=== PATIENT | male | born 1955 | race Hispanic/Latino ===

== ENCOUNTER → 2023-07-26 | Outpatient (CLI) | payer OTHER | END | disposition home or self-care (01) | LOC: SHCH 07:34 | PROVIDERS: ATTEND Internal Medicine Cardiovascular Disease | DX: R94.31 Abnormal electrocardiogram [ECG] [EKG] (principal); J44.9 Chronic obstructive pulmonary disease, unspecified | CPT/HCPCS: 93306 ==

== ENCOUNTER → 2023-08-01 | Outpatient (CLI) | payer OTHER | END | disposition home or self-care (01) | LOC: RAH 12:47 | PROVIDERS: ATTEND Internal Medicine Cardiovascular Disease | DX: Z13.6 Encounter for screening for cardiovascular disorders (principal) | CPT/HCPCS: 75571 ==

== ENCOUNTER 2025-03-13 06:29 | Inpatient (IN) | payer OTHER, MEDICARE ==
[~2025-03-13] VITALS: Ht 175.3 cm; Wt 72.2 kg
[2025-03-13 06:54] LABS: IMMATURE GRANULOCYTE ABSOLUTE 0.08 K/uL (0-1); NUCLEATED RED BLOOD CELLS 0.0 % (0.0-0.19); PLATELET COUNT (AUTO) 191 K/uL (130-400); RED BLOOD CELL COUNT(AUTO) 3.38 MIL/uL (4.50-6.20); RED CELL DISTRIBUTION WIDTH 15.7 % (11.0-15.5); WHITE BLOOD COUNT (AUTO) 6.5 K/uL (4.8-10.8)
[2025-03-13 06:59] LABS: CREATININE 0.9 mg/dL (0.5-1.3); GLOMERULAR FILTR. RATE CALC 91.0 mL/min (>90); GLUCOSE,RANDOM 133.0 mg/dL (70-105); SODIUM SERUM 142.0 mmol/L (136-145); UREA NITROGEN, BLOOD 12.0 mg/dL (7-18)
--- NOTE | 2025-03-13 07:01 | ERN ---
ED Note History of Present Illness Stated Complaint: BILATERAL FLANK PAIN Chief Complaint: Flank Pain Time Seen by MD: 06:54 Dictation: This is a 70-year-old male who presented to the emergency room with complaints of bilateral flank pain going on for 2-3 days. Apparently he has taken ibuprofen without much relief and hence he came in today he also gave a history of feeling cold with chills but no documented fever. He denied any hematuria pyuria. No history of any dysuria. No bladder or bowel incontinence. No lower extremity weakness ataxia or falls. Temperature 98.4 pulse 82 respirations 20 blood pressure 131/59 with a pulse oximetry of 99% on room air Problems include prostate cancer, asthma, COPD, hypothyroidism and has a right Port-A-Cath placement Patient is under the care of oncologist Allergies: Coded Allergies: No Known Drug Allergies (Unverified Allergy, Unknown, 05/21/18) Past Medical History Past Medical History: Asthma, COPD, Hypothyroid, Other Additional Past Medical Hx: PROSTATE CA Surgical History: Other Surgical History Other: KNEE REPLACEMENT Family History: Negative Social History: Negative RN Note Reviewed/Agreed w/PFSH: Yes Review of System Dictation Constitutional: Negative for fever,chills, and weight loss Eyes: Negative for injury, pain,redness, and discharge ENT: Negative for injury,pain or swelling Cardiovascular: Negative for chest pain, palpitations, and edema Respiratory: Negative for shortness of breath, cough, and wheezing, Abdomen/GI: Negative for abdominal pain, nausea, vomiting, diarrhea, and constipation Back: Positive for bilateral flank pain : Negative for injury, bleeding and discharge MS/Extremity: Negative for injury and deformity Skin: Negative for rash, and discoloration Neuro: Negative for headache, weakness, numbness, tingling, and seizure Psych: Negative for suicide ideation, homicidal ideation, and hallucinations Initial Vital Sign VS Vital Signs Date Time Temp Pulse Resp B/P (MAP) Pulse Ox O2 Delivery O2 Flow Rate FiO2 03/13/25 06:31 98.4 82 20 131/59 99 Room Air 0 03/13/25 06:38 21 Physical Exam Dictation General: awake, alert, NAD Head/Face: Normocephalic, atraumatic Eyes: PERRL, EOMI, vision at baseline ENT: oral cavity clear, TMs clear, no signs of infection Neck: Trachea midline, supple, no nuchal rigidity Cardiovascular: RRR, normal S1/S2, No MRGs, no JVD Respiratory: CTAB, no respiratory distress, No rales or wheezes Abdomen: Soft, non-tender, non-distended, normal bowel sounds, no guarding or rebound. Skin: Warm, dry, normal turgor, no rash MS/Extremity: Pulses equal, no cyanosis, neurovascular intact, FROM Neuro: COAx4, GCS 15, strength 5/5, CN 2-12 intact, normal cerebellar exam, normal gait, Psych: Normal behavior, mood, and affect normal Extremities-trace edema without any palpable cords, Homans sign is negative Results (Laboratory/Radiology) Laboratory/Radiology Laboratory Tests Test 03/13/25 06:34 03/13/25 07:32 03/13/25 14:18 White Blood Count 6.5 K/uL (4.8-10.8) Red Blood Count 3.38 MIL/uL (4.50-6.20) L Hemoglobin 10.3 g/dL (14.0-18.0) L Hematocrit 30.6 % (42-54) L Mean Corpuscular Volume 90.5 fL (79-99) Mean Corpuscular Hemoglobin 30.5 pg (27.0-33.0) Mean Corpuscular Hemoglobin Concent 33.7 g/dL (32.0-36.0) Red Cell Distribution Width 15.7 % (11.0-15.5) H Platelet Count 191 K/uL (130-400) Mean Platelet Volume 9.5 fL (7.5-10.5) Immature Granulocyte % (Auto) 1.2 % (0-1) H Neutrophils (%) (Auto) 73.5 % (40.0-77.0) Lymphocytes (%) (Auto) 15.3 % (21.0-51.0) L Monocytes (%) (Auto) 6.0 % (3.0-13.0) Eosinophils (%) (Auto) 3.7 % (0.0-8.0) Basophils (%) (Auto) 0.3 % (0.0-5.0) Neutrophils # (Auto) 4.8 K/uL (1.8-7.7) Lymphocytes # (Auto) 1.0 K/uL (1.0-4.8) Monocytes # (Auto) 0.4 K/uL (0.1-1.0) Eosinophils # (Auto) 0.24 K/uL (0.00-0.70) Basophils # (Auto) 0.02 K/uL (0.00-0.20) Absolute Immature Granulocyte (auto 0.08 K/uL (0-1) Nucleated Red Blood Cells 0.0 % (0.0-0.19) Urine Color YELLOW (YELLOW) Urine Appearance CLEAR (CLEAR) Urine pH 5.5 (5.0-8.0) Urine Specific [place] 1.026 (1.001-1.031) Urine Protein 10 mg/dL (NEGATIVE) H Urine Glucose (UA) NEGATIVE mg/dL (NEGATIVE) Urine Ketones NEGATIVE mg/dL (NEGATIVE) Urine Occult Blood NEGATIVE (NEGATIVE) Urine Nitrate NEGATIVE (NEGATIVE) Urine Bilirubin NEGATIVE mg/dL (NEGATIVE) Urine Urobilinogen 0.2 mg/dL (0.2-1.0) Urine Leukocyte Esterase NEGATIVE [place]/uL Urine RBC 0-1 /HPF (0-1) Urine WBC 2-5 /HPF (0-1) H Urine Amorphous Crystals (Auto) RARE /LPF (None Seen) Urine Bacteria None /HPF (None Seen) Sodium Level 142 mmol/L (136-145) Potassium Level 3.4 mmol/L (3.5-5.1) L Chloride Level 105 mmol/L (101-111) Carbon Dioxide Level 27 mmol/L (21-32) Blood Urea Nitrogen 12 mg/dL (7-18) Creatinine 0.9 mg/dL (0.5-1.3) Glomerular Filtration Rate Calc 91 mL/min (>90) Random Glucose 133 mg/dL (70-105) H Total Calcium 10.1 mg/dL (8.5-10.1) Magnesium Level 1.80 mg/dL (1.80-2.40) Total Bilirubin 0.6 mg/dL (0.2-1.0) Direct Bilirubin 0.2 mg/dL (0.0-0.3) Aspartate Amino Transf (AST/SGOT) 83 U/L (10-37) H Alanine Aminotransferase (ALT/SGPT) 14 U/L (12-78) Alkaline Phosphatase 323 U/L (50-136) H Total Protein 6.3 g/dL (6.0-8.3) Albumin 3.3 g/dL (3.5-5.0) L Troponin I High Sensitivity 5 ng/L (4-75) Prothrombin Time 13.2 SEC (9.6-11.6) H Prothromb Time International Ratio 1.28 (0.85-1.15) H Activated Partial Thromboplast Time 30.9 SEC (26.3-35.5) Labs Reviewed?: Yes ED Course ED Course Orders Procedure Category Date Status Time Cbc With Differential LAB 03/13/25 Complete 06:42 Basic Metabolic Panel LAB 03/13/25 Complete 06:42 Urinalysis Profile LAB 03/13/25 Complete 06:42 Ct Abd/Pel Wo Con CT 03/13/25 Resulted Renal/Appy 07:00 12 Lead Ekg Tracing- EKG 03/13/25 Resulted Technical 07:26 Troponin I High LAB 03/13/25 Complete Sensitivity 07:26 Morphine 4mg Syg PHA 03/13/25 Complete (Morphine 4mg Syg) 08:30 Ketorolac PHA 03/13/25 Complete Tromethamine 15mg/Ml 08:30 Ondansetron 4mg Inj PHA 03/13/25 Complete (Zofran 4mg Inj) 08:30 Hydromorphone 1 Mg PHA 03/13/25 Complete Inj (Dilaudid 1mg Inj 10:30 Admit Orders ADM 03/13/25 Transmitted 13:36 Telemetry Monitoring CPOE 03/13/25 Transmitted 13:36 Fall Precautions CPOE 03/13/25 Transmitted 13:36 Aspiration Precautions CPOE 03/13/25 Transmitted 13:36 Elevate Hob At 30 CPOE 03/13/25 Transmitted Degrees 13:36 Acetaminophen 325 Tab PHA 03/13/25 In Process (Tylenol 325mg Tab 14:00 Ondansetron 4mg Inj PHA 03/13/25 In Process (Zofran 4mg Inj) 14:00 *Nursing CPOE 03/13/25 Transmitted Communication: 13:36 Oncology Consult CONPHYSVC 03/13/25 Transmitted 13:36 Gi Soft/[place] Diet DIET 03/13/25 Transmitted Lunch Pantoprazole 40mg Inj PHA 03/13/25 Complete (Protonix 40mg Inj 14:00 Potassium Chloride PHA 03/13/25 Complete 20meq Er (K-Dur/Klor- 14:00 0.9%Nacl 1000ml (Ns PHA 03/13/25 In Process 1000ml) 14:00 Hydromorphone 0.5mg PHA 03/13/25 In Process Syg (Dilaudid 0.5mg 14:00 Hepatic Function Panel LAB 03/13/25 Complete 13:55 Thiamine Hcl (Vitamin PHA 03/13/25 In Process B-1) 14:00 Vital Signs(Adult CPOE 03/13/25 Transmitted Hospitalist) 13:55 Daily Weights CPOE 03/13/25 Transmitted 13:55 Pulse Ox(Continuous) RT 03/13/25 Transmitted 13:55 Condition: CPOE 03/13/25 Transmitted 13:55 Activity: Br W/Brp CPOE 03/13/25 Transmitted With Assist 13:55 Apply Scds CPOE 03/13/25 Transmitted 13:55 Famotidine 20mg Tab PHA 03/13/25 In Process (Pepcid 20mg Tab) 21:00 Enoxaparin Sodium 30 PHA 03/14/25 In Process Mg/0.3 Ml (Lovenox) 09:00 Pt And Ptt LAB 03/13/25 Complete 14:00 Multivitamin Tablet PHA 03/14/25 In Process (Multivitamin Tablet 09:00 Magnesium LAB 03/13/25 Complete 13:55 *Nursing CPOE 03/13/25 Transmitted Communication: 14:24 Sennosides (Senna) PHA 03/14/25 In Process 09:00 Docusate Sodium 100 PHA 03/13/25 In Process Mg Cap (Colace 100mg 21:00 Fluconazole 100 Mg PHA 03/14/25 In Process Tab (Diflucan 100 Mg 09:00 Current Medications Medications (Trade) Dose Ordered Sig/Denzel Route PRN Reason Start Time Stop Time Status Last Admin Dose Admin Hydromorphone HCl (DiLAUDid 1MG INJ) 1 mg ONCE ONCE IVP 03/13/25 10:30 03/13/25 10:31 DC 03/13/25 10:39 Ketorolac Tromethamine (toRADol) 15 mg ONCE ONCE IV 03/13/25 08:30 03/13/25 08:31 DC 03/13/25 08:30 Morphine Sulfate (morPHINE 4MG SYG) 4 mg ONCE ONCE IVP 03/13/25 08:30 03/13/25 08:31 DC 03/13/25 08:32 Ondansetron HCl (zoFRAN 4MG INJ) 4 mg ONCE ONCE IVP 03/13/25 08:30 03/13/25 08:31 DC 03/13/25 08:30 Vital Signs Date Time Temp Pulse Resp B/P (MAP) Pulse Ox O2 Delivery O2 Flow Rate FiO2 03/13/25 12:28 98.1 72 19 131/67 99 Room Air* 0 21 03/13/25 07:39 97.9 68 19 126/67 100 Room Air* 0 21 03/13/25 06:38 98.4 85 18 135/62 99 Room Air* 0 21 03/13/25 06:31 98.4 82 20 131/59 99 Room Air 0 We will perform diagnostic labs, imaging and administer medications according to the patient's complaint. Once the results are available, will review and personally interpreted the labs to rule out any acute life-threatening emergency the trach require immediate intervention and treatment. I will then re-evaluate the patient after treatment and diagnostic exams have return to determine whether the patient requires any further testing, can safely be discharged home or need further admission to hospital for additional treatment and evaluation. Medical Decision Making MDM MDM differential-paraspinal muscle spasm, lumbago, pyelonephritis, renal colic, diverticulitis, metastatic lesions of the spine This is a 70-year-old male who presented to the emergency room with complaints of bilateral flank pain going on for 2-3 days. Apparently he has taken ibuprofen without much relief and hence he came in today he also gave a history of feeling cold with chills but no documented fever. He denied any hematuria pyuria. No history of any dysuria. No bladder or bowel incontinence. No lower extremity weakness ataxia or falls. Temperature 98.4 pulse 82 respirations 20 blood pressure 131/59 with a pulse oximetry of 99% on room air Problems include prostate cancer, asthma, COPD, hypothyroidism and has a right Port-A-Cath placement Patient is under the care of oncologist - Patient handed off at shift change with right due pain unable to ambulate admitting to Medicine for further care and evaluation DX & DISP Disposition: Inpatient Departure Impression: Primary Impression: Intractable back pain Condition: Stable Referrals: CHET CEBALLOS DO (PCP) RANDAL DALY MD Mar 13, 2025 07:01 EMERY ERAZO MD Mar 13, 2025 15:26
[2025-03-13 07:02] LABS: APPEARANCE,URINE CLEAR (CLEAR); GLUCOSE, URINE (UA) NEGATIVE (NEGATIVE); LEUKOCYTE ESTERASE ,URINE NEGATIVE Leu/uL (NEGATIVE); NITRATE,URINE NEGATIVE (NEGATIVE); OCCULT BLOOD,URINE NEGATIVE (NEGATIVE)
[2025-03-13 07:06] LABS: ADD UA MICROSCOPIC YES
--- NOTE | 2025-03-13 07:50 | HMCIMG ---
EXAM: CT Abdomen and Pelvis without V contrast CLINICAL HISTORY: Bilateral flank pain and prostate cancer. TECHNIQUE: Thin collimated axial CT images of the abdomen and pelvis were obtained, with sagittal and coronal reformatted images also submitted. A CT scan is done according to ALARA (As Low As Reasonably Achievable). CONTRAST: None COMPARISON: None. FINDINGS: Mild right posterior pleural thickening. Linear fibrotic band in the right middle lobe and lingula. No lung nodules. A 3.5 x 2.4 x 2.7 cm nodule in the right adrenal gland and an enlarged left adrenal gland measuring 3.9 x 3.7 x 4.2 cm No focal abnormality within the liver, gallbladder, pancreas, spleen, or kidneys. Scattered diverticulosis of the sigmoid colon without evidence of diverticulitis. There is no obvious bowel wall thickening. Bowel loops are normal in caliber without evidence of obstruction or ileus. The appendix is normal. Normal-sized prostate with median lobe hypertrophy. Partially distended urinary bladder with diffuse wall thickening, probable changes of cystitis or detrusor hyperplasia. Abdominal and pelvic vessels are patent. No lymphadenopathy. No free fluid. There is no acute osseous abnormality. Degenerative changes in the sacroiliac, superolateral joint, and multilevel severe degenerative facet arthropathy in the lumbar spine. Disc osteophyte complex bulges at L1-L2, L2-L3, and L3-L4 levels with severe facet arthropathy and moderate to severe narrowing of the neural foramina. Retrolisthesis of L1 over L2 and L2 over L3. Diffuse ill-defined sclerosis of the visualized thoracic and lumbar vertebrae, bilateral iliac bones, suspicious for metastasis. IMPRESSIONS: No acute intra-abdominal pathology. No abdominal fat stranding or collection. No evidence of ascites or free intraperitoneal air. Normal-sized prostate with median lobe hypertrophy. Diffuse wall thickening of the urinary bladder is probably a change of cystitis or detrusor hyperplasia. Scattered diverticulosis of the sigmoid colon without evidence of diverticulitis. Bilateral adrenal lesions as described, larger on the left side; the possibility of metastasis is not excluded. Diffuse ill-defined sclerosis of the thoracic and lumbar vertebrae and the pelvic bones is consistent with metastasis. Multilevel severe degenerative changes in the lumbar spine as described above. Minimal retrolisthesis of L1 over L2. /[place]
--- NOTE | 2025-03-13 08:18 | EKG ---
[facility] Test Date: 2025-03-13 Test Time: 07:44:07 Pat Name: MICHAEL CASE Department: ED Room: Gender: M Service Order Expediter: [id number] : [id number] Requested By: EMERY ERAZO Order Number: [id number] Reading MD: Ruby Epstein Measurements Intervals [place] Rate: 74 P: 56 [place]: 200 QRS: -35 QRSD: 92 T: 44 QT: 391 QTc: 434 Interpretive Statements Sinus rhythm Left axis deviation Nonspecific T abnormalities, anterior leads No previous ECG available for comparison Electronically Signed On 03-13-2025 13:13:27 CDT by Ruby Epstein Please click the below link to view image of tracing.
[2025-03-13 14:16] LABS: ASPARTATE AMINOTRANSFERASE 83.0 U/L (10-37); TOTAL PROTEIN, SERUM 6.3 g/dL (6.0-8.3)
[2025-03-13 14:42] LABS: INR 1.28 (0.85-1.15)
--- NOTE | 2025-03-13 14:44 | HP ---
[facility] HISTORY AND PHYSICAL Date of Service: Mar 13, 2025 Time of Service: 14:37 HISTORY OF PRESENT ILLNESS: Date of service: 03/13/2025, patient was seen in ER room 19 This is a 70-year-old male with underlying history of COPD, BPH, history of metastatic prostate cancer who presented to the ER for further evaluation of intractable pain involving the lower back, flank and hip area. Patient states that pain has been ongoing for the past 1-2 weeks and has progressively worsened over the last several days. Patient is followed by Dr. Santacruz outpatient for management of metastatic prostate cancer. He has a right Port-A-Cath as well. He is currently being arranged for evaluation with MD Galindo in [place]. He has been having nonresolving pain and is currently taking oxycodone every 4 hours as needed for pain control. Oxycodone is moderately relieving the pain but he continues to have persistent pain. Denies any nausea or vomiting. Denies any constipation. Denies any shortness of breath or chest pain otherwise. He has lost about 7-8 lb over the last several weeks. Oral intake remains poor. Patient denies any syncopal episodes. Denies any weakness to the lower extremity or fall. On presentation to the hospital, patient was noted to be afebrile with T-max of 98.1 F, blood pressure of 131/59. Labs on presentation showed WBC count of 6500, hemoglobin 10.3, platelet count of [id number]. BMP remarkable for sodium of 142, potassium of 3.4, chloride of 105, BUN of 12, creatinine of 0.9, AST of 83, ALT of 14, alkaline phosphatase of 323. Patient underwent further evaluation with CT abdomen pelvis without contrast which showed findings of bilateral adrenal lesions, diffuse ill-defined sclerosis of the thoracic and lumbar vertebrae and pelvic bones consistent with metastasis. Patient has been observed in the ER for about 6 hours and has needed pain control with IV morphine and IV hydromorphone and continues to have significant pain. Patient will be admitted for pain control secondary to cancer-related pain with known metastasis to bones. Consultation with primary Oncology will be requested. We will see how patient does in the next 24-48 hours, we will need to consider fentanyl patch on discharge. REVIEW OF SYSTEMS CONSTITUTIONAL: Denies fevers, chills, or night sweats. reports having poor oral intake due to pain NEUROLOGICAL: Denies headache, amaurosis fugax, motor weakness, sensory deficit, vertigo/spinning sensation, gait abnormalities, or tremors. ENT: No hearing loss, otalgia, otorrhea, rhinitis, rhinorrhea, hoarseness, or sore throat. CARDIOVASCULAR: Denies any exertional angina, dyspnea on exertion, orthopnea, paroxysmal nocturnal dyspnea, palpitations, life-threatening arrhythmias, claudication. PULMONARY: Denies any shortness of breath, cough, phlegm/sputum, hemoptysis, pleuritic chest pain. SLEEP: Denies morning headaches, daytime somnolence or napping. Denies difficulty falling asleep, staying asleep, waking from sleep. Denies knowledge of snoring. GASTROINTESTINAL: Denies any type of dysphagia to either liquids or solids. Denies nausea, vomiting, pyrosis, early satiety, abdominal pain, diarrhea, constipation, or changes in stool consistency or caliber. Denies coffee-ground emesis, hematemesis, hematochezia, or melanotic stools. GENITOURINARY: Denies frequency, urgency, nocturia, hematuria or incontinence (Storage/Irritative symptoms.) Low urinary stream, straining to void, urinary intermittency or hesitancy, splitting of the voiding stream, terminal dribbling. ENDOCRINOLOGIC: Denies polyuria, polydipsia, polyphagia or heat/cold intolerances. HEMATOLOGIC: Denies thrombophilia/previous clots, or coagulopathy/bleeding disorders. ONCOLOGIC: reports hx of metastatic prostate cancer, reports having pain in the lower back, flank and hips DERMATOLOGIC: Denies rashes or pruritus. PSYCHIATRIC: Denies any suicidal or homicidal ideation. Denies hallucinations. PAST MEDICAL HISTORY: Metastatic prostate cancer, COPD, hypothyroidism PAST SURGICAL HISTORY: Bilateral knee replacement, history of right Port-A-Cath placement PAST SOCIAL HISTORY: Denies active smoking or alcohol consumption, patient has a remote smoking history FAMILY HISTORY: Denies pertinent family history allergies: No known drug allergies Home medications: Patient will have family bring list of home medications, reports being on morphine ER 30 mg twice daily, oxycodone 10-325 mg q4h prn Coded Allergies: No Known Drug Allergies (Unverified Allergy, Unknown, 05/21/18) PHYSICAL EXAM GENERAL APPEARANCE: The patient is awake, alert, and oriented, in no acute cardiopulmonary distress. NEUROLOGICAL: Cranial nerves II-XII grossly intact. Motor is 5/5 in bilateral upper and lower extremities proximal to distal. No sensory deficits. HEENT: Face is symmetric. Pupils are equal and reactive. Extraocular movements are intact. NECK: Supple. No JVD. No thyromegaly. No submental, submandibular, pre- /postauricular, occipital or supraclavicular lymphadenopathy. CHEST: Normal chest expansion. No Telemetry. LUNGS: Absence of any rales, rhonchi or any wheezing. CARDIOVASCULAR: Regular. S1 and S2 normal. No appreciable rubs, murmurs or gallops. ABDOMEN: Soft, nontender, and nondistended. There is no rebound, voluntary guarding, or rigidity. : Deferred. No Gabriel. EXTREMITIES: Non-edematous and not cyanotic. No clubbing. Good capillary refill. SKIN: No skin breakdown. Vital Sign (Last 24 Hours) 03/13/25 12:28 Temp 98.1 Pulse 72 Resp 19 B/P (MAP) 131/67 Pulse Ox 99 O2 Delivery Room Air* O2 Flow Rate 0 FiO2 21 LABS: Laboratory: Test 03/13/25 07:32 03/13/25 06:34 Range/Units Troponin I High Sensitivity 5 4-75 ng/L White Blood Count 6.5 4.8-10.8 K/uL Red Blood Count 3.38 L 4.50-6.20 MIL/uL Hemoglobin 10.3 L 14.0-18.0 g/dL Hematocrit 30.6 L 42-54 % Mean Corpuscular Volume 90.5 79-99 fL Mean Corpuscular Hemoglobin 30.5 27.0-33.0 pg Mean Corpuscular Hemoglobin Concent 33.7 32.0-36.0 g/dL Red Cell Distribution Width 15.7 H 11.0-15.5 % Platelet Count 191 130-400 K/uL Mean Platelet Volume 9.5 7.5-10.5 fL Immature Granulocyte % (Auto) 1.2 H 0-1 % Neutrophils (%) (Auto) 73.5 40.0-77.0 % Lymphocytes (%) (Auto) 15.3 L 21.0-51.0 % Monocytes (%) (Auto) 6.0 3.0-13.0 % Eosinophils (%) (Auto) 3.7 0.0-8.0 % Basophils (%) (Auto) 0.3 0.0-5.0 % Neutrophils # (Auto) 4.8 1.8-7.7 K/uL Lymphocytes # (Auto) 1.0 1.0-4.8 K/uL Monocytes # (Auto) 0.4 0.1-1.0 K/uL Eosinophils # (Auto) 0.24 0.00-0.70 K/uL Basophils # (Auto) 0.02 0.00-0.20 K/uL Absolute Immature Granulocyte (auto 0.08 0-1 K/uL Nucleated Red Blood Cells 0.0 0.0-0.19 % Urine Color YELLOW YELLOW Urine Appearance CLEAR CLEAR Urine pH 5.5 5.0-8.0 Urine Specific Goode 1.026 1.001-1.031 Urine Protein 10 H NEGATIVE mg/dL Urine Glucose (UA) NEGATIVE NEGATIVE mg/dL Urine Ketones NEGATIVE NEGATIVE mg/dL Urine Occult Blood NEGATIVE NEGATIVE Urine Nitrate NEGATIVE NEGATIVE Urine Bilirubin NEGATIVE NEGATIVE mg/dL Urine Urobilinogen 0.2 0.2-1.0 mg/dL Urine Leukocyte Esterase NEGATIVE NEGATIVE Faiza/uL Urine RBC 0-1 0-1 /HPF Urine WBC 2-5 H 0-1 /HPF Urine Amorphous Crystals (Auto) RARE None Seen /LPF Urine Bacteria None None Seen /HPF Sodium Level 142 136-145 mmol/L Potassium Level 3.4 L 3.5-5.1 mmol/L Chloride Level 105 101-111 mmol/L Carbon Dioxide Level 27 21-32 mmol/L Blood Urea Nitrogen 12 7-18 mg/dL Creatinine 0.9 0.5-1.3 mg/dL Glomerular Filtration Rate Calc 91 >90 mL/min Random Glucose 133 H 70-105 mg/dL Total Calcium 10.1 8.5-10.1 mg/dL Magnesium Level 1.80 1.80-2.40 mg/dL Total Bilirubin 0.6 0.2-1.0 mg/dL Direct Bilirubin 0.2 0.0-0.3 mg/dL Aspartate Amino Transf (AST/SGOT) 83 H 10-37 U/L Alanine Aminotransferase (ALT/SGPT) 14 12-78 U/L Alkaline Phosphatase 323 H 50-136 U/L Total Protein 6.3 6.0-8.3 g/dL Albumin 3.3 L 3.5-5.0 g/dL Current Medications Medications (Trade) Dose Ordered Sig/Denzel Route PRN Reason Start Time Stop Time Status Last Admin Dose Admin Acetaminophen (TYLenol 325MG TAB) 650 mg Q6H PRN PO MILD PAIN (1-3) 03/13/25 14:00 04/12/25 13:59 Docusate Sodium (COLace 100MG CAP) 100 mg BID PO 03/13/25 21:00 04/12/25 20:59 Enoxaparin Sodium (Lovenox) 30 mg DAILY SQ 03/14/25 09:00 04/13/25 08:59 Famotidine (Pepcid 20mg Tab) 20 mg BID PO 03/13/25 21:00 04/12/25 20:59 Hydromorphone HCl (DiLAUDid 0.5MG INJ) 0.5 mg Q4H PRN IVP SEVERE PAIN (7-10) 03/13/25 14:00 03/18/25 13:59 Multivitamins Therapeutic (Multivitamin Tablet) 1 tab DAILY PO 03/14/25 09:00 04/13/25 08:59 Ondansetron HCl (zoFRAN 4MG INJ) 4 mg Q6H PRN IVP NAUSEA/VOMITING 03/13/25 14:00 04/12/25 13:59 Pantoprazole Sodium (PROTonix 40MG INJ) 40 mg Q24H IVP 03/13/25 14:00 03/13/25 14:09 DC Sennosides (Senna) 1 tab DAILY PO 03/14/25 09:00 04/13/25 08:59 Sodium Chloride 1,000 ml @ 50 mls/hr Q20H IV 03/13/25 14:00 04/12/25 13:59 Thiamine HCl (Vitamin B-1) 100 mg Q24H IVP 03/13/25 14:00 04/12/25 13:59 DIAGNOSTICS / RADIOLOGY: SERVICE 0700 REASON: bilateral flank pain, prostate cancer ORDERING PHYSICIAN: RANDAL DALY MD PROCEDURE: ABD PELVWO - CT ABD/PEL WO CON RENAL/APPY EXAM: CT Abdomen and Pelvis without V contrast CLINICAL HISTORY: Bilateral flank pain and prostate cancer. TECHNIQUE: Thin collimated axial CT images of the abdomen and pelvis were obtained, with sagittal and coronal reformatted images also submitted. A CT scan is done according to ALARA (As Low As Reasonably Achievable). CONTRAST: None COMPARISON: None. FINDINGS: Mild right posterior pleural thickening. Linear fibrotic band in the right middle lobe and lingula. No lung nodules. A 3.5 x 2.4 x 2.7 cm nodule in the right adrenal gland and an enlarged left adrenal gland measuring 3.9 x 3.7 x 4.2 cm No focal abnormality within the liver, gallbladder, pancreas, spleen, or kidneys. Scattered diverticulosis of the sigmoid colon without evidence of diverticulitis. There is no obvious bowel wall thickening. Bowel loops are normal in caliber without evidence of obstruction or ileus. The appendix is normal. Normal-sized prostate with median lobe hypertrophy. Partially distended urinary bladder with diffuse wall thickening, probable changes of cystitis or detrusor hyperplasia. Abdominal and pelvic vessels are patent. No lymphadenopathy. No free fluid. There is no acute osseous abnormality. Degenerative changes in the sacroiliac, superolateral joint, and multilevel severe degenerative facet arthropathy in the lumbar spine. Disc osteophyte complex bulges at L1-L2, L2-L3, and L3-L4 levels with severe facet arthropathy and moderate to severe narrowing of the neural foramina. Retrolisthesis of L1 over L2 and L2 over L3. Diffuse ill-defined sclerosis of the visualized thoracic and lumbar vertebrae, bilateral iliac bones, suspicious for metastasis. IMPRESSIONS: No acute intra-abdominal pathology. No abdominal fat stranding or collection. No evidence of ascites or free intraperitoneal air. Normal-sized prostate with median lobe hypertrophy. Diffuse wall thickening of the urinary bladder is probably a change of cystitis or detrusor hyperplasia. Scattered diverticulosis of the sigmoid colon without evidence of diverticulitis. Bilateral adrenal lesions as described, larger on the left side; the possibility of metastasis is not excluded. Diffuse ill-defined sclerosis of the thoracic and lumbar vertebrae and the pelvic bones is consistent with metastasis. Multilevel severe degenerative changes in the lumbar spine as described above. Minimal retrolisthesis of L1 over L2. /[place] DICTATED BY: RANDA RIVERA Jr., MD DATE: 03/13/25848 ELECTRONICALLY SIGNED BY: RANDA RIVERA Jr., MD DATE: 03/13/25848 ASSESSMENT: Intractable cancer associated pain, POA History of metastatic prostate cancer with metastasis to bone and suspected bilateral adrenal glands, POA Moderate protein calorie malnutrition, POA History of oral thrush, POA Anemia, POA History of COPD, POA Hypokalemia, POA Hypothyroidism, POA History of BPH, POA PLAN: Patient will be admitted to medical-surgical floor under telemetry monitoring We will start patient on IV hydromorphone 0.5 mg q.4 hours p.r.n. We will see patient requirement's of hydromorphone in the next 24 hours, we will need to consider fentanyl patch for pain control on discharge Patient's case was discussed with Dr. Gu Oncology, appreciate recommendations Patient reports being diagnosed with oral candidiasis, he has been started on nystatin solution, we will start patient on fluconazole p.o. and Hold nystatin Consultation with flight director will be requested We will start patient on thiamine and multivitamin supplementation Continue with rest of the home medication including home dose of Wixela We will keep patient on GI prophylaxis with Pepcid and DVT prophylaxis with Lovenox All labs will be repeated in the morning We will see how patient does with pain control in the next 24-48 hours, Plan of care was discussed with patient at bedside, Carlos Ovalle MD Advanced Care Planning: Which of the following were discussed: Hospice care: Yes __ No _X_ Therapeutic options: Yes _X_ No __ Advance directives: Yes _X_ No __ Other discussions: Discussed with who?: Patient Voluntary nature of this service was explained to the patient? Yes _x_ No __ Amount of time spent: 20 minutes CARLOS OVALLE MD Mar 13, 2025 14:44
--- NOTE | 2025-03-13 16:17 | NUR ---
DCP:HOME Pt currently lives alone in his home. Pt does not report having any DME or home health services. Pt states that he does have a provider that goes to the home 12 hrs a week to assist with home mangement and meals. PCP is Maris Morin (shekhar diaz) from the [place], [facility] At [place] pt will want to go home and family can assist with transportation. Addendum: 03/13/25 at 1620 by BARBARA GENAO SS Amended: Links added.
[2025-03-13] MEDS: PoTASSium chloRIDE 20MEQ ER 20 MEQ ERTAB PO ONE (16:46)
[2025-03-13] MEDS: 0.9%NACL 1000ML 1,000 ML IV SCH (16:46)
[2025-03-13] MEDS: THIAMINE HCL 100 MG/ML 2ML VIAL IVP SCH (16:46)
[2025-03-13] MEDS ORDERED: TAMS-55 PO (17:04)
[2025-03-13] MEDS ORDERED: NYST100033 PO (17:04)
[2025-03-13] MEDS ORDERED: MORP30CA14 PO (17:04)
[2025-03-13] MEDS ORDERED: SERT-440 PO (17:04)
[2025-03-13] MEDS ORDERED: LEVO112T7 PO (17:04)
[2025-03-13] MEDS ORDERED: FLUT1BLS9 IH (17:04)
--- NOTE | 2025-03-13 17:20 | NUR ---
ATTEMPTED TO CALL EXTENSION [id number], NO ANSWER, WILL ATTEMPT TO CALL BACK PATIENT RESTING IN BED, CALL LIGHT IN REACH
--- NOTE | 2025-03-13 17:45 | NUR ---
SPOKE WITH TOOLING SUPERVISOR IN REGARDS TO FLOOR NURSE NOT ANSWERING PHONE CALLS IN ATTEMPTS TO CALL REPORT, TOOLING SUPERVISOR INFROMED FLOOR CHARGE AND ER CHARGE OF ER PRIMARY RN TO DO BEDSIDE REPORT. NO FURTHER INSTRUCTIONS GIVEN AT THIS TIME, ER PRIMARY RN SHEREE MADE AWARE OF BEDSIDE REPORT TO BE GIVEN AT THIS TIME./[place]
--- NOTE | 2025-03-13 18:19 | NUR ---
BEDSIDE REPORT GIVEN TO MILI THOMAS LVN SENT WITH PATIENT
[2025-03-13 20:00] VITALS: BP 137/72; PULSE 85; RESP 17; TEMP 98
--- NOTE | 2025-03-13 20:05 | NUR ---
MEDS SHIFT ASSESSMENT DONE, PLEASE REFER TO CHART. PT CLAIMS OF PAINS TO HIS BACK AND LEGS. MEDICATED WITH DILAUDID IV FOR PAINS AND DUE MEDS ADMINISTERED. RE-STARTED IVF OF NS AT 50CC/HR. KEPT RESTED AND COMFORTABLE IN BED. CALL LIGHT WITHIN REACH. BED ALARM ACTIVATED. WILL RE-ASSESS PT.
[2025-03-13] MEDS: FAMOTIDINE 20MG TAB PO SCH (20:34)
[2025-03-13 20:35] VITALS: O2SAT 98
--- NOTE | 2025-03-13 21:12 | HMCIMG ---
EXAM: CR Chest, 1 view CLINICAL HISTORY: History of COPD. Assess for infiltrates. History of prostate cancer with metastasis. COMPARISON: None provided. FINDINGS: The right-sided Mediport catheter tip overlies the distal SVC. The lungs show no infiltrates or other acute findings. No pleural effusion or pneumothorax. The cardiomediastinal silhouette is within normal limits. No acute osseous abnormality. Mildly elevated right hemidiaphragm. IMPRESSION: No acute cardiopulmonary process is evident. /[place]
[2025-03-14] VITALS (9 sets, daily range): BP systolic 121–138; BP diastolic 60–76; PULSE 65–85; RESP 17–20; TEMP 97.3–98.6; O2SAT 97–99
--- NOTE | 2025-03-14 01:00 | NUR ---
PAIN PT CALLS AND CLAIMS OF BACK PAINS GOING TO HIS LEGS. NOTED PIV ALREADY DISLODGED. PT CLAIMS HE IS TRYING TO GET UP TO URINATE AND ACCIDENTALLY GOT PULLED OUT. PIV CATHETER IS INTACT. RE-INSERTED PIV G20 TO RT WRIST THEN MEDICATED WITH DILAUDID IV FOR PAINS. RE-STARTED IVF OF NS. WARM PACKS APPLIED TO LOWER BACK. WILL RE-ASSESS PT.
--- NOTE | 2025-03-14 05:33 | NUR ---
MEDS PT SLEPT AT INTERVALS DURING THE SHIFT. PT CLAIMS OF GENERALIZED PAINS MOSTLY THE BACK AND THE LEGS. DUE PO SYNTHROID ADMINISTERED AND IV DILAUDID GIVEN FOR PAIN. KEPT RESTED AND COMFORTABLE IN BED. CALL LIGHT WITHIN REACH. WILL RE-ASSESS PT.
[2025-03-14 07:13] LABS: NUCLEATED RED BLOOD CELLS 0.0 % (0.0-0.19); PLATELET COUNT (AUTO) 148.0 K/uL (130-400); RED BLOOD CELL COUNT(AUTO) 3.05 MIL/uL (4.50-6.20); RED CELL DISTRIBUTION WIDTH 15.4 % (11.0-15.5); WHITE BLOOD COUNT (AUTO) 5.7 K/uL (4.8-10.8)
[2025-03-14 07:27] LABS: ASPARTATE AMINOTRANSFERASE 75.0 U/L (10-37); CREATININE 0.9 mg/dL (0.5-1.3); GLOMERULAR FILTR. RATE CALC 91.0 mL/min (>90); GLUCOSE,RANDOM 101.0 mg/dL (70-105); SODIUM SERUM 141.0 mmol/L (136-145); TOTAL PROTEIN, SERUM 6.3 g/dL (6.0-8.3); UREA NITROGEN, BLOOD 10.0 mg/dL (7-18)
[2025-03-14] MEDS: MULTIVITAMIN TABLET PO SCH (08:07)
[2025-03-14] MEDS: SENNOSIDES 8.6 MG TABLET PO SCH (08:07)
[2025-03-14] MEDS: ENOXAPARIN SODIUM 30 MG/0.3 ML SQ SCH (08:08)
[2025-03-14] MEDS: SALMETEROL IH SCH (08:12)
[2025-03-14] MEDS: FLUTICASONE PROPION IH SCH (08:12)
[2025-03-14] MEDS ORDERED: PoTASSium chl 10% ELIXIR 20MEQ 20 MEQ/15 ML UDCUP PO PRN (12:30)
--- NOTE | 2025-03-14 13:51 | PN ---
[facility] PROGRESS NOTE Date of Service: Mar 14, 2025 Time of Service: 13:10 SUBJECTIVE: [ ] This is a 70-year-old male with underlying history of COPD, BPH, history of metastatic prostate cancer who presented to the ER for further evaluation of intractable pain involving the lower back, flank and hip area. Patient states that pain has been ongoing for the past 1-2 weeks and has progressively worsened over the last several days. Patient is followed by Dr. Santacruz outpatient for management of metastatic prostate cancer. He has a right Port-A-Cath as well. He is currently being arranged for evaluation with [facility] in [place]. He has been having nonresolving pain and is currently taking oxycodone every 4 hours as needed for pain control. Oxycodone is moderately relieving the pain but he continues to have persistent pain. Denies any nausea or vomiting. Denies any constipation. Denies any shortness of breath or chest pain otherwise. He has lost about 7-8 lb over the last several weeks. Oral intake remains poor. Patient denies any syncopal episodes. Denies any weakness to the lower extremity or fall. On presentation to the hospital, patient was noted to be afebrile with T-max of 98.1 F, blood pressure of 131/59.Labs on presentation showed WBC count of 6500, hemoglobin 10.3, platelet count of 621870.BMP remarkable for sodium of 142, potassium of 3.4, chloride of 105, BUN of 12, creatinine of 0.9, AST of 83, ALT of 14, alkaline phosphatase of 323. Patient underwent further evaluation with CT abdomen pelvis without contrast which showed findings of bilateral adrenal lesions, diffuse ill-defined sclerosis of the thoracic and lumbar vertebrae and pelvic bones consistent with metastasis. Patient has been observed in the ER for about 6 hours and has needed pain control with IV morphine and IV hydromorphone and continues to have significant pain. Patient will be admitted for pain control secondary to cancer-related pain with known metastasis to bones. Consultation with primary Oncology will be requested. 03/14/2025: Patient seen and evaluated bedside this morning in room 315. He is awake alert oriented x3, complaining of severe pain of back, hip. He rates pain 10/10, says that he is having muscle spasms. Vitals shows blood pressure 131/76, heart rate 78, respiratory rate 17 , saturating 99% with room air. Patient is receiving Dilaudid2 mg IV q.4 PRN, gabapentin 300 mg p.o. t.i.d., dexamethasone 4 mg IV q.6h. Heme oncology on board, we will follow up with the recommendations. REVIEW OF SYSTEMS CONSTITUTIONAL: Denies fevers, chills, or night sweats. reports having poor oral intake due to pain NEUROLOGICAL: Denies headache, amaurosis fugax, motor weakness, sensory deficit, vertigo/spinning sensation, gait abnormalities, or tremors. ENT: No hearing loss, otalgia, otorrhea, rhinitis, rhinorrhea, hoarseness, or sore throat. CARDIOVASCULAR: Denies any exertional angina, dyspnea on exertion, orthopnea, paroxysmal nocturnal dyspnea, palpitations, life-threatening arrhythmias, claudication. PULMONARY: Denies any shortness of breath, cough, phlegm/sputum, hemoptysis, pleuritic chest pain. SLEEP: Denies morning headaches, daytime somnolence or napping. Denies difficulty falling asleep, staying asleep, waking from sleep. Denies knowledge of snoring. GASTROINTESTINAL: Denies any type of dysphagia to either liquids or solids. Denies nausea, vomiting, pyrosis, early satiety, abdominal pain, diarrhea, constipation, or changes in stool consistency or caliber. Denies coffee-ground emesis, hematemesis, hematochezia, or melanotic stools. GENITOURINARY: Denies frequency, urgency, nocturia, hematuria or incontinence (Storage/Irritative symptoms.) Low urinary stream, straining to void, urinary intermittency or hesitancy, splitting of the voiding stream, terminal dribbling. ENDOCRINOLOGIC: Denies polyuria, polydipsia, polyphagia or heat/cold intolerances. HEMATOLOGIC: Denies thrombophilia/previous clots, or coagulopathy/bleeding disorders. ONCOLOGIC: reports hx of metastatic prostate cancer, reports having pain in the lower back, flank and hips DERMATOLOGIC: Denies rashes or pruritus. PSYCHIATRIC: Denies any suicidal or homicidal ideation. Denies hallucinations. PHYSICAL EXAM GENERAL APPEARANCE: The patient is awake, alert, and oriented, in no acute cardiopulmonary distress. NEUROLOGICAL: Cranial nerves II-XII grossly intact. Motor is 5/5 in bilateral upper and lower extremities proximal to distal. No sensory deficits. HEENT: Face is symmetric. Pupils are equal and reactive. Extraocular movements are intact. NECK: Supple. No JVD. No thyromegaly. No submental, submandibular, pre- /postauricular, occipital or supraclavicular lymphadenopathy. CHEST: Normal chest expansion. No Telemetry. LUNGS: Absence of any rales, rhonchi or any wheezing. CARDIOVASCULAR: Regular. S1 and S2 normal. No appreciable rubs, murmurs or gallops. ABDOMEN: Soft, nontender, and nondistended. There is no rebound, voluntary guarding, or rigidity. : Deferred. No Gabriel. EXTREMITIES: Non-edematous and not cyanotic. No clubbing. Good capillary refill. SKIN: No skin breakdown. Vital Signs (last 8hr) Date Time Temp Pulse Resp B/P (MAP) Pulse Ox O2 Delivery O2 Flow Rate FiO2 03/14/25 12:00 97.3 67 20 131/67 100 Room Air 03/14/25 08:00 97.9 65 19 133/63 99 Room Air LABS: Laboratory: Test 03/14/25 07:09 03/13/25 14:18 03/13/25 07:32 03/13/25 06:34 Range/Units White Blood Count 5.7 4.8-10.8 K/uL Red Blood Count 3.05 L 4.50-6.20 MIL/uL Hemoglobin 9.4 L 14.0-18.0 g/dL Hematocrit 27.8 L 42-54 % Mean Corpuscular Volume 91.1 79-99 fL Mean Corpuscular Hemoglobin 30.8 27.0-33.0 pg Mean Corpuscular Hemoglobin Concent 33.8 32.0-36.0 g/dL Red Cell Distribution Width 15.4 11.0-15.5 % Platelet Count 148 130-400 K/uL Mean Platelet Volume 9.1 7.5-10.5 fL Nucleated Red Blood Cells 0.0 0.0-0.19 % Sodium Level 141 136-145 mmol/L Potassium Level 3.6 3.5-5.1 mmol/L Chloride Level 106 101-111 mmol/L Carbon Dioxide Level 28 21-32 mmol/L Blood Urea Nitrogen 10 7-18 mg/dL Creatinine 0.9 0.5-1.3 mg/dL Glomerular Filtration Rate Calc 91 >90 mL/min Random Glucose 101 70-105 mg/dL Total Calcium 9.0 8.5-10.1 mg/dL Magnesium Level 1.80 1.80-2.40 mg/dL Total Bilirubin 0.7 0.2-1.0 mg/dL Aspartate Amino Transf (AST/SGOT) 75 H 10-37 U/L Alanine Aminotransferase (ALT/SGPT) 13 12-78 U/L Alkaline Phosphatase 331 H 50-136 U/L Total Protein 6.3 6.0-8.3 g/dL Albumin 3.2 L 3.5-5.0 g/dL Prothrombin Time 13.2 H 9.6-11.6 SEC Prothromb Time International Ratio 1.28 H 0.85-1.15 Activated Partial Thromboplast Time 30.9 26.3-35.5 SEC Troponin I High Sensitivity 5 4-75 ng/L Immature Granulocyte % (Auto) 1.2 H 0-1 % Neutrophils (%) (Auto) 73.5 40.0-77.0 % Lymphocytes (%) (Auto) 15.3 L 21.0-51.0 % Monocytes (%) (Auto) 6.0 3.0-13.0 % Eosinophils (%) (Auto) 3.7 0.0-8.0 % Basophils (%) (Auto) 0.3 0.0-5.0 % Neutrophils # (Auto) 4.8 1.8-7.7 K/uL Lymphocytes # (Auto) 1.0 1.0-4.8 K/uL Monocytes # (Auto) 0.4 0.1-1.0 K/uL Eosinophils # (Auto) 0.24 0.00-0.70 K/uL Basophils # (Auto) 0.02 0.00-0.20 K/uL Absolute Immature Granulocyte (auto 0.08 0-1 K/uL Urine Color YELLOW YELLOW Urine Appearance CLEAR CLEAR Urine pH 5.5 5.0-8.0 Urine Specific [place] 1.026 1.001-1.031 Urine Protein 10 H NEGATIVE mg/dL Urine Glucose (UA) NEGATIVE NEGATIVE mg/dL Urine Ketones NEGATIVE NEGATIVE mg/dL Urine Occult Blood NEGATIVE NEGATIVE Urine Nitrate NEGATIVE NEGATIVE Urine Bilirubin NEGATIVE NEGATIVE mg/dL Urine Urobilinogen 0.2 0.2-1.0 mg/dL Urine Leukocyte Esterase NEGATIVE NEGATIVE Faiza/uL Urine RBC 0-1 0-1 /HPF Urine WBC 2-5 H 0-1 /HPF Urine Amorphous Crystals (Auto) RARE None Seen /LPF Urine Bacteria None None Seen /HPF Direct Bilirubin 0.2 0.0-0.3 mg/dL Current Medications Medications (Trade) Dose Ordered Sig/Denzel Route PRN Reason Start Time Stop Time Status Last Admin Dose Admin Acetaminophen (TYLenol 325MG TAB) 650 mg Q6H PRN PO MILD PAIN (1-3) 03/13/25 14:00 04/12/25 13:59 Dexamethasone Sodium Phosphate (dexaMETHasone 4MG/ML 1ML VIAL) 4 mg Q6H IV 03/14/25 09:00 04/13/25 08:59 03/14/25 08:06 4 MG Docusate Sodium (COLace 100MG CAP) 100 mg BID PO 03/13/25 21:00 04/12/25 20:59 03/13/25 20:34 100 MG Enoxaparin Sodium (Lovenox) 30 mg DAILY SQ 03/14/25 09:00 04/13/25 08:59 Famotidine (Pepcid 20mg Tab) 20 mg BID PO 03/13/25 21:00 03/14/25 07:23 DC 03/13/25 20:34 20 MG Fluconazole (DiFLUCan 100 mg TAB) 200 mg DAILY PO 03/14/25 09:00 04/13/25 08:59 03/14/25 08:07 200 MG Gabapentin (NEURontin 300 MG CAP) 300 mg TID PO 03/14/25 14:00 04/13/25 13:59 Home Med (Home Medication) (Fluticasone Propion/ [place]... DAILY IH 03/14/25 09:00 04/13/25 08:59 03/14/25 08:12 1 EACH Hydromorphone HCl (DiLAUDid 0.5MG INJ) 0.5 mg Q4H PRN IVP SEVERE PAIN (7-10) 03/13/25 14:00 03/14/25 07:21 DC 03/14/25 05:33 0.5 MG Hydromorphone HCl (DiLAUDid 2MG INJ) 2 mg Q4H PRN IVP SEVERE PAIN (7-10) 03/14/25 07:30 03/19/25 07:29 Levothyroxine Sodium (SYNTHroid 112MCG TAB) 112 mcg SYN PO 03/14/25 06:30 04/13/25 06:29 03/14/25 05:31 112 MCG Multivitamins Therapeutic (Multivitamin Tablet) 1 tab DAILY PO 03/14/25 09:00 04/13/25 08:59 03/14/25 08:07 1 TAB Ondansetron HCl (zoFRAN 4MG INJ) 4 mg Q6H PRN IVP NAUSEA/VOMITING 03/13/25 14:00 04/12/25 13:59 03/14/25 12:55 4 MG Pantoprazole Sodium (PROTonix 40MG INJ) 40 mg Q24H IVP 03/13/25 14:00 03/13/25 14:09 DC Pantoprazole Sodium (PROTonix 40MG TAB) 40 mg DAILY PO 03/14/25 09:00 04/13/25 08:59 03/14/25 08:07 40 MG Potassium Chloride 100 ml @ 100 mls/hr AD PRN IV POTASSIUM PROTOCOL 03/14/25 12:30 04/13/25 12:29 Potassium Chloride (K-Dur/Klor-Con 20meq) 20 meq AD PRN PO POTASSIUM PROTOCOL 03/14/25 12:30 04/13/25 12:29 Potassium Chloride (KCl 10% Elixir 20meq/15ml) 20 meq AD PRN PO POTASSIUM PROTOCOL 03/14/25 12:30 04/13/25 12:29 Sennosides (Senna) 1 tab DAILY PO 03/14/25 09:00 04/13/25 08:59 03/14/25 08:07 1 TAB Sertraline HCl (ZOloft 50 mg tab) 100 mg DAILY PO 03/14/25 09:00 04/13/25 08:59 03/14/25 08:07 100 MG Sodium Chloride 1,000 ml @ 50 mls/hr Q20H IV 03/13/25 14:00 04/12/25 13:59 03/14/25 10:19 50 MLS/HR Tamsulosin HCl (FloMAX) 0.4 mg DAILY PO 03/14/25 09:00 04/13/25 08:59 03/14/25 08:06 0.4 MG Thiamine HCl (Vitamin B-1) 100 mg Q24H IVP 03/13/25 14:00 04/12/25 13:59 03/13/25 16:46 100 MG DIAGNOSTICS / RADIOLOGY: [ ] [facility] [address] [place] [address] IMAGING REPORT Signed PATIENT: MICHAEL CASE MR#: [id number] : 1955 SEX: M AGE: 70 LOCATION: [facility] ORDER 07 STATUS: REG ER REPORT#: [id number] SERVICE 0700 REASON: bilateral flank pain, prostate cancer ORDERING PHYSICIAN: RANDAL DALY MD PROCEDURE: ABD PELVWO - CT ABD/PEL WO CON RENAL/APPY EXAM: CT Abdomen and Pelvis without V contrast CLINICAL HISTORY: Bilateral flank pain and prostate cancer. TECHNIQUE: Thin collimated axial CT images of the abdomen and pelvis were obtained, with sagittal and coronal reformatted images also submitted. A CT scan is done according to ALARA (As Low As Reasonably Achievable). CONTRAST: None COMPARISON: None. FINDINGS: Mild right posterior pleural thickening. Linear fibrotic band in the right middle lobe and lingula. No lung nodules. A 3.5 x 2.4 x 2.7 cm nodule in the right adrenal gland and an enlarged left adrenal gland measuring 3.9 x 3.7 x 4.2 cm No focal abnormality within the liver, gallbladder, pancreas, spleen, or kidneys. Scattered diverticulosis of the sigmoid colon without evidence of diverticulitis. There is no obvious bowel wall thickening. Bowel loops are normal in caliber without evidence of obstruction or ileus. The appendix is normal. Normal-sized prostate with median lobe hypertrophy. Partially distended urinary bladder with diffuse wall thickening, probable changes of cystitis or detrusor hyperplasia. Abdominal and pelvic vessels are patent. No lymphadenopathy. No free fluid. There is no acute osseous abnormality. Degenerative changes in the sacroiliac, superolateral joint, and multilevel severe degenerative facet arthropathy in the lumbar spine. Disc osteophyte complex bulges at L1-L2, L2-L3, and L3-L4 levels with severe facet arthropathy and moderate to severe narrowing of the neural foramina. Retrolisthesis of L1 over L2 and L2 over L3. Diffuse ill-defined sclerosis of the visualized thoracic and lumbar vertebrae, bilateral iliac bones, suspicious for metastasis. IMPRESSIONS: No acute intra-abdominal pathology. No abdominal fat stranding or collection. No evidence of ascites or free intraperitoneal air. Normal-sized prostate with median lobe hypertrophy. Diffuse wall thickening of the urinary bladder is probably a change of cystitis or detrusor hyperplasia. Scattered diverticulosis of the sigmoid colon without evidence of diverticulitis. Bilateral adrenal lesions as described, larger on the left side; the possibility of metastasis is not excluded. Diffuse ill-defined sclerosis of the thoracic and lumbar vertebrae and the pelvic bones is consistent with metastasis. Multilevel severe degenerative changes in the lumbar spine as described above. Minimal retrolisthesis of L1 over L2. /Aldie DICTATED BY: RANDA RIVERA Jr., MD DATE: 03/13/25848 ELECTRONICALLY SIGNED BY: RANDA RIVERA Jr., MD DATE: 03/13/258[address] [place] [address] IMAGING REPORT Signed PATIENT: MICHAEL CASE MR#: [id number] : 1955 SEX: M AGE: 70 LOCATION: [facility] ORDER 41 STATUS: ADM IN REPORT#: [id number] SERVICE 40 REASON: hx of COPD, assess for infiltrates, hx of prostate cancer w/ mets ORDERING PHYSICIAN: MINERVA HAAS MD PROCEDURE: CXR1VW - CHEST 1VW EXAM: CR Chest, 1 view CLINICAL HISTORY: History of COPD. Assess for infiltrates. History of prostate cancer with metastasis. COMPARISON: None provided. FINDINGS: The right-sided Mediport catheter tip overlies the distal SVC. The lungs show no infiltrates or other acute findings. No pleural effusion or pneumothorax. The cardiomediastinal silhouette is within normal limits. No acute osseous abnormality. Mildly elevated right hemidiaphragm. IMPRESSION: No acute cardiopulmonary process is evident. /Aldie DICTATED BY: RANDA RIVERA Jr., MD DATE: 03/13/252211 ELECTRONICALLY SIGNED BY: RANDA RIVERA Jr., MD DATE: 03/13/252211 ASSESSMENT: Intractable cancer associated pain, POA History of metastatic prostate cancer with metastasis to bone and suspected bilateral adrenal glands, POA Moderate protein calorie malnutrition, POA History of oral thrush, POA Anemia, POA History of COPD, POA Hypokalemia, POA Hypothyroidism, POA History of BPH, POA PLAN: Intractable cancer associated pain, POA -patient is having severe intractable pain in his back, hips along with muscle spasms -patient is receiving Dilaudid 2 mg q.4h p.r.n. IV -patient is started on Neurontin 300 mg t.i.d. -Heme-Onc on board we will follow up with the recommendations. History of metastatic prostate cancer with metastasis to bone and suspected bilateral adrenal glands, POA -patient is known case of metastatic prostate cancer with metastasis to bone. -CT abdomen and pelvis shows Mets to thoracic and lumbar vertebra and pelvic bones. Bilateral adrenal lesions possibility of metastasis is not excluded -dexamethasone4 mg IV q.6 H started as per Heme-Onc recommendations. History of oral thrush, POA -patient is diagnosed with oral thrush, using nystatin oral suspension at home. -we will hold the statin and start fluconazole 200 mg daily. Hypokalemia, POA -patient potassium level was 3.4 on presentation -we are replacing potassium per protocol, potassium level today shows 3.6 -we will trend potassium, replace per protocol. Consultation with color receiver will be requested We will start patient on thiamine and multivitamin supplementation We will keep patient on GI prophylaxis with Pepcid and DVT prophylaxis with Lovenox ATTESTATION BY PHYSICIAN I have seen and examined the patient. I reviewed the documentation, medical decision making, and treatment plan as noted by the resident provider above. I agree with the findings and plan of care. ALONZO FARRIS MD, ADIL SHAH QUADRI MD Mar 14, 2025 13:51
[2025-03-14] MEDS: GABAPENTIN 300 MG CAPSULE PO SCH (14:20)
--- NOTE | 2025-03-14 14:26 | NUR ---
Nutritional Note: Chart, meds, and labs Reviewed. Pt with poor appetite, fatigue and pain reported. Pt at risk of malnutrition due to chronic illness and decreased intake. Nutritional goal is maintaining intake and wt. Recommend: -continue GI soft bland diet -Nephrovite MVI combination of B vitamins may be used to treat or prevent vitamin deficiency due to poor diet. -Magic Cup 4oz w/ PM tray: Provides 9gm pro/ 290kcal and 20 vitamins and minerals. [place] to serve with meals as a means of adding calories and protein for unintended weight loss. -ProStat BID (30 ml) JELLO - Electrolyte replacements per protocol -Monitor feeding tolerance, %, wt, and labs -Document PO intake and wt daily. -If No BM >3days consider bowel stimulant, pt w/ hx of opioid therapy. -Consider appetite stimulant if intake remains <75%for 3 days. - Notify RD if additional nutrition concerns arise. SEE RD Nutritional Assessment for additional assessment information. Addendum: 03/14/25 at 1430 [address] Amended: Links added.
[2025-03-14] MEDS: PoTASSium chloRIDE 20MEQ ER 20 MEQ ERTAB PO PRN (14:31)
--- NOTE | 2025-03-14 23:40 | CONS ---
LOCATION: [facility]. REFERRING PHYSICIAN: Dr. Carlos Ovalle. REASON FOR CONSULTATION: Metastatic prostate cancer. HISTORY OF PRESENT ILLNESS: This is a 70-year-old man treated by me for years for metastatic stage 4 prostate cancer with bone metastasis. He went through all the targeted drugs, all the hormonal therapy. He had 2 courses each 6 months each, first Taxotere and then Jevtana and progressed on both. At that point, he was restaged and sent to [facility] for Pluvicto therapy. He has been seen by them, but as yet, they have not done any treatment. He has been maintained on hormonal therapy since that time. He has continuing pain. He has been on oxycodone. He has been on oral time release morphine. He has been on numerous other medicines without relief. He has lost about 7 pounds in the last 2 months. PAST MEDICAL HISTORY: Reviewed. SOCIAL HISTORY: Reviewed. [facility] PHYSICAL EXAMINATION: GENERAL: Shows a pleasant man. VITAL SIGNS: BP 131/70, pulse 70, respirations 20. HEENT: Benign. CHEST: Clear and soft. EXTREMITIES: Edema. NEUROLOGIC: Awake and oriented. IMPRESSION: * Intractable cancer pain. * Metastatic prostate cancer, stage 4, refractory to all treatment, pending Pluvicto therapy in [place]. * Protein-calorie malnutrition. * Oral thrush. * Chronic obstructive pulmonary disease. * Electrolyte disturbance. PLAN: * We will place back on a short course of IV steroids. * Increase his Dilaudid to be q. 4, very tolerant to pain medicine. * We will reach out to [place] to see if they can move up their treatment plan. * I agree with the Erikaan. * Further recommendations to follow. TID: [id number] RECEIPT: [id number]
[2025-03-15 04:00] VITALS: BP 136/71; PULSE 71; RESP 17; TEMP 98
[2025-03-15 05:33] LABS: NUCLEATED RED BLOOD CELLS 0.0 % (0.0-0.19); PLATELET COUNT (AUTO) 157.0 K/uL (130-400); RED BLOOD CELL COUNT(AUTO) 2.78 MIL/uL (4.50-6.20); RED CELL DISTRIBUTION WIDTH 15.4 % (11.0-15.5); WHITE BLOOD COUNT (AUTO) 5.1 K/uL (4.8-10.8)
[2025-03-15 05:42] LABS: CREATININE 0.8 mg/dL (0.5-1.3); GLOMERULAR FILTR. RATE CALC 95.0 mL/min (>90); GLUCOSE,RANDOM 142.0 mg/dL (70-105); SODIUM SERUM 143.0 mmol/L (136-145); UREA NITROGEN, BLOOD 10.0 mg/dL (7-18)
[2025-03-15 08:00] VITALS: BP 136/66; PULSE 63; RESP 17; TEMP 98.1; O2SAT 94
[2025-03-15 11:52] VITALS: BP 147/75; PULSE 65; RESP 18; TEMP 98.3
--- NOTE | 2025-03-15 14:42 | CONS ---
HISTORY OF PRESENT ILLNESS: This is a 70-year-old man treated by me for years for metastatic stage 4 prostate cancer with bone metastasis. He went through all the targeted drugs, all the hormonal therapy. He had 2 courses each 6 months each, first Taxotere and then Jevtana and progressed on both. At that point, he was restaged and sent to [facility] for Pluvicto therapy. He has been seen by them, but as yet, they have not done any treatment. He has been maintained on hormonal therapy since that time. He has continuing pain. He has been on oxycodone. He has been on oral time release morphine. He has been on numerous other medicines without relief. He has lost about 7 pounds in the last 2 months. No acute issues today. Patient wishes to go home. Pain somewhat controlled. He is willing to continue on his home Oxycodone. He has an appointment with [facility] on Mar for Pluvicto. EXAM: GEN: AAO 3 no NAD ABD: non tender non distended EXT: No rashes, no ecchymosis NEURO: No focal deficits LABS: WBC 6.5 HGB 10.3 PLT 191 sCR 0.9 IMAGING: CT bony lesions in the thoracic/lumbar and pelvic bones A/P: Metastatic CRPC: Admitted for pain control. Patient wishes to go home today. He will need to follow-up with Dr Santacruz on Monday. Instructed to call the clinic on Monday. Discontinue Dexamethasone. Please discharge with Diflucan and Gabapentin. Patient can continue his home dose of oxycodone. ZENAIDA PATTEN MD [facility] covering for Dr Santacruz Patient History: Alzheimer's disease FATHER Diabetes mellitus MOTHER FATHER Vitals/Labs Vital Signs Date Time Temp Pulse Resp B/P (MAP) Pulse Ox O2 Delivery O2 Flow Rate FiO2 03/15/25 11:52 98.2 65 18 147/75 99 Room Air 03/15/25 08:00 0 21 Laboratory Tests 03/15/25 05:21 Allergies: Coded Allergies: No Known Drug Allergies (Unverified Allergy, Unknown, 05/21/18) Medications Current Medications Morphine Sulfate 4 mg ONCE ONCE IVP Last administered on 03/13/25at 08:32; Start 03/13/25 at 08:30; Stop 03/13/25 at 08:31; Status DC Ketorolac Tromethamine 15 mg ONCE ONCE IV Last administered on 03/13/25at 08:30; Start 03/13/25 at 08:30; Stop 03/13/25 at 08:31; Status DC Ondansetron HCl 4 mg ONCE ONCE IVP Last administered on 03/13/25at 08:30; Start 03/13/25 at 08:30; Stop 03/13/25 at 08:31; Status DC Hydromorphone HCl 1 mg ONCE ONCE IVP Last administered on 03/13/25at 10:39; Start 03/13/25 at 10:30; Stop 03/13/25 at 10:31; Status DC Acetaminophen 650 mg Q6H PRN PO; Start 03/13/25 at 14:00; Stop 04/12/25 at 13:59 Ondansetron HCl 4 mg Q6H PRN IVP Last administered on 03/14/25at 12:55; Start 03/13/25 at 14:00; Stop 04/12/25 at 13:59 Pantoprazole Sodium 40 mg Q24H IVP; Start 03/13/25 at 14:00; Stop 03/13/25 at 14:09; Status DC Potassium Chloride 20 meq ONCE ONCE PO Last administered on 03/13/25at 16:46; Start 03/13/25 at 14:00; Stop 03/13/25 at 14:01; Status DC Sodium Chloride 1,000 ml @ 50 mls/hr Q20H IV Last administered on 03/15/25at 06:13; Start 03/13/25 at 14:00; Stop 04/12/25 at 13:59 Hydromorphone HCl 0.5 mg Q4H PRN IVP Last administered on 03/14/25at 05:33; Start 03/13/25 at 14:00; Stop 03/14/25 at 07:21; Status DC Thiamine HCl 100 mg Q24H IVP Last administered on 03/14/25at 14:20; Start 03/13/25 at 14:00; Stop 04/12/25 at 13:59 Famotidine 20 mg BID PO Last administered on 03/13/25at 20:34; Start 03/13/25 at 21:00; Stop 03/14/25 at 07:23; Status DC Enoxaparin Sodium 30 mg DAILY SQ Last administered on 03/15/25at 09:09; Start 03/14/25 at 09:00; Stop 04/13/25 at 08:59 Multivitamins Therapeutic 1 tab DAILY PO Last administered on 03/15/25at 09:04; Start 03/14/25 at 09:00; Stop 04/13/25 at 08:59 Sennosides 1 tab DAILY PO Last administered on 03/15/25at 09:04; Start 03/14/25 at 09:00; Stop 04/13/25 at 08:59 Docusate Sodium 100 mg BID PO Last administered on 03/15/25at 08:59; Start 03/13/25 at 21:00; Stop 04/12/25 at 20:59 Fluconazole 200 mg DAILY PO Last administered on 03/15/25at 08:59; Start 03/14/25 at 09:00; Stop 04/13/25 at 08:59 Levothyroxine Sodium 112 mcg SYN PO Last administered on 03/15/25at 06:13; Start 03/14/25 at 06:30; Stop 04/13/25 at 06:29 Tamsulosin HCl 0.4 mg DAILY PO Last administered on 03/15/25at 09:04; Start 03/14/25 at 09:00; Stop 04/13/25 at 08:59 Home Med (Fluticasone Propion/ [place]... DAILY IH Last administered on 03/14/25at 08:12; Start 03/14/25 at 09:00; Stop 04/13/25 at 08:59 Sertraline HCl 100 mg DAILY PO Last administered on 03/15/25at 09:02; Start 03/14/25 at 09:00; Stop 04/13/25 at 08:59 Dexamethasone Sodium Phosphate 4 mg Q6H IV Last administered on 03/15/25at 09:05; Start 03/14/25 at 09:00; Stop 04/13/25 at 08:59 Pantoprazole Sodium 40 mg DAILY PO Last administered on 03/15/25at 09:03; Start 03/14/25 at 09:00; Stop 04/13/25 at 08:59 Hydromorphone HCl 2 mg Q4H PRN IVP Last administered on 03/14/25at 14:32; Start 03/14/25 at 07:30; Stop 03/19/25 at 07:29 Gabapentin 300 mg TID PO Last administered on 03/15/25at 09:05; Start 03/14/25 at 14:00; Stop 04/13/25 at 13:59 Potassium Chloride 100 ml @ 100 mls/hr AD PRN IV; Start 03/14/25 at 12:30; Stop 04/13/25 at 12:29 Potassium Chloride 20 meq AD PRN PO; Start 03/14/25 at 12:30; Stop 04/13/25 at 12:29 Potassium Chloride 20 meq AD PRN PO Last administered on 03/15/25at 09:03; Start 03/14/25 at 12:30; Stop 04/13/25 at 12:29 Acetaminophen 100 ml @ 400 mls/hr Q8H IVPB Last administered on 03/15/25at 09:17; Start 03/14/25 at 17:00; Stop 03/17/25 at 16:59 ZENAIDA PATTEN MD Mar 15, 2025 14:41
[2025-03-15 15:30] VITALS: BP 145/72; PULSE 67; RESP 18; TEMP 98.1
--- NOTE | 2025-03-15 15:30 | NUR ---
PROVIDER GIVEN UPDATE ON DR SANDHU D/Rambo RECOMMENDATIONS. PATIENT TO CONTINUE GABAPENTIN AND DIFLUCAN. DEXAMETHASONE TO BE DISCONTINUED AT DISCHARGE. Addendum: 03/15/25 at 1647 by KENTON MILLER RN RN Amended: Links added.
[2025-03-15] MEDS ORDERED: GABA300C PO (15:46)
[2025-03-15] MEDS ORDERED: FLUC100T12 PO (15:46)
--- NOTE | 2025-03-15 15:49 | DS ---
Discharge Summary Hospital Course Summary: This is a 70-year-old male with past medical history of COPD, BPH, and metastatic prostate cancer who presented to the ER for further evaluation of progressive pain involving the lower back, flank and hip area for the past 2weeks, which has worsened over the past few days. Patient is followed by Dr. Salazar outpatient for management of metastatic prostate cancer and has a right Port-A-Cath as well. He reported no improvement in pain despite taking oxycodone every 4 hours as needed, along with poor oral intake and unintentional weight loss of 7-8 lb over several weeks. On presentation, afebrile with T-max of 98.1 F, blood pressure of 131/59. Labs WBC count of 6500, hemoglobin 10.3, platelet count of 272475. BMP remarkable for sodium of 142, potassium of 3.4, chloride of 105, BUN of 12, creatinine of 0.9, AST of 83, ALT of 14, alkaline phosphatase of 323. CT abdomen pelvis without contrast which showed findings of bilateral adrenal lesions, diffuse ill-defined sclerosis of the thoracic and lumbar vertebrae and pelvic bones consistent with metastasis. Patient was admitted for pain control and Oncology was consulted. He was started on dexamethasone IV q.6h, gabapentin 300 mg p.o. t.i.d. and fluconazole 200 mg for oral thrush, Dilaudid 2mg IV q.4h p.r.n. was used for breakthrough pain. Over the course of hospitalization the patient's pain improved with the current regimen. Today the patient is seen and examined at the bedside. He was hemodynamically stable with blood pressure in 130s/50s, heart rate in 60s to 70s and SpO2 greater than 95% on room air. Hemoglobin was 8.4 grams/deciliter, AST improved to 75 and alkaline phosphatase remained stable around 330. The patient expressed a strong desire to go home and declined a fentanyl patch. Per Oncology recommendations is being discharged home in stable condition with prescriptions to fluconazole 100 mg p.o. daily for 14 days for oral thrush and gabapentin 300 mg p.o. t.i.d. for pain. He was advised to continue his current home medications and follow up with oncologist Dr. Salazar on Monday for further management a nd pain control adjustments. Production Control Specialist(s): Oncology Consult: REFERRING PHYSICIAN: Dr. Carlos Ovalle. REASON FOR CONSULTATION: Metastatic prostate cancer. HISTORY OF PRESENT ILLNESS: This is a 70-year-old man treated by me for years for metastatic stage 4 prostate cancer with bone metastasis. He went through all the targeted drugs, all the hormonal therapy. He had 2 courses each 6 months each, first Taxotere and then Jevtana and progressed on both. At that point, he was restaged and sent to [facility] for Pluvicto therapy. He has been seen by them, but as yet, they have not done any treatment. He has been maintained on hormonal therapy since that time. He has continuing pain. He has been on oxycodone. He has been on oral time release morphine. He has been on numerous other medicines without relief. He has lost about 7 pounds in the last 2 months. PAST MEDICAL HISTORY: Reviewed. SOCIAL HISTORY: Reviewed. [facility] PHYSICAL EXAMINATION: GENERAL: Shows a pleasant man. VITAL SIGNS: BP 131/70, pulse 70, respirations 20. HEENT: Benign. CHEST: Clear and soft. EXTREMITIES: Edema. NEUROLOGIC: Awake and oriented. IMPRESSION: * Intractable cancer pain. * Metastatic prostate cancer, stage 4, refractory to all treatment, pending Pluvicto therapy in [place]. * Protein-calorie malnutrition. * Oral thrush. * Chronic obstructive pulmonary disease. * Electrolyte disturbance. PLAN: * We will place back on a short course of IV steroids. * Increase his Dilaudid to be q. 4, very tolerant to pain medicine. * We will reach out to [place] to see if they can move up their treatment plan. * I agree with the Diflucan. * Further recommendations to follow. TID: [id number] RECEIPT: [id number] Electronically Signed by: ZAIRE SALAZAR MD03/16/25 0715 Electronically Co-Signed by: 03/15/2025 A/P: Metastatic CRPC: Admitted for pain control. Patient wishes to go home today. He will need to follow-up with Dr Salazar on Monday. Instructed to call the clinic on Monday. Discontinue Dexamethasone. Please discharge with Diflucan and Gabapentin. Patient can continue his home dose of oxycodone. ZENAIDA EARLINE MD [facility] covering for Dr Salazar Procedure(s): PATIENT: MICHAEL CASE MR#: [id number] : 1955 SEX: M AGE: 70 LOCATION: [facility] ORDER 1 STATUS: REG ER REPORT#: [id number] SERVICE 9 REASON: bilateral flank pain, prostate cancer ORDERING PHYSICIAN: RANDAL DALY MD PROCEDURE: ABD PELVWO - CT ABD/PEL WO CON RENAL/APPY EXAM: CT Abdomen and Pelvis without V contrast CLINICAL HISTORY: Bilateral flank pain and prostate cancer. TECHNIQUE: Thin collimated axial CT images of the abdomen and pelvis were obtained, with sagittal and coronal reformatted images also submitted. A CT scan is done according to ALARA (As Low As Reasonably Achievable). CONTRAST: None COMPARISON: None. FINDINGS: Mild right posterior pleural thickening. Linear fibrotic band in the right middle lobe and lingula. No lung nodules. A 3.5 x 2.4 x 2.7 cm nodule in the right adrenal gland and an enlarged left adrenal gland measuring 3.9 x 3.7 x 4.2 cm No focal abnormality within the liver, gallbladder, pancreas, spleen, or kidneys. Scattered diverticulosis of the sigmoid colon without evidence of diverticulitis. There is no obvious bowel wall thickening. Bowel loops are normal in caliber without evidence of obstruction or ileus. The appendix is normal. Normal-sized prostate with median lobe hypertrophy. Partially distended urinary bladder with diffuse wall thickening, probable changes of cystitis or detrusor hyperplasia. Abdominal and pelvic vessels are patent. No lymphadenopathy. No free fluid. There is no acute osseous abnormality. Degenerative changes in the sacroiliac, superolateral joint, and multilevel severe degenerative facet arthropathy in the lumbar spine. Disc osteophyte complex bulges at L1-L2, L2-L3, and L3-L4 levels with severe facet arthropathy and moderate to severe narrowing of the neural foramina. Retrolisthesis of L1 over L2 and L2 over L3. Diffuse ill-defined sclerosis of the visualized thoracic and lumbar vertebrae, bilateral iliac bones, suspicious for metastasis. IMPRESSIONS: No acute intra-abdominal pathology. No abdominal fat stranding or collection. No evidence of ascites or free intraperitoneal air. Normal-sized prostate with median lobe hypertrophy. Diffuse wall thickening of the urinary bladder is probably a change of cystitis or detrusor hyperplasia. Scattered diverticulosis of the sigmoid colon without evidence of diverticulitis. Bilateral adrenal lesions as described, larger on the left side; the possibility of metastasis is not excluded. Diffuse ill-defined sclerosis of the thoracic and lumbar vertebrae and the pelvic bones is consistent with metastasis. Multilevel severe degenerative changes in the lumbar spine as described above. Minimal retrolisthesis of L1 over L2. /[place] DICTATED BY: RANDA RIVERA Jr., MD DATE: 03/13/25848 ELECTRONICALLY SIGNED BY: RANDA RIVERA Jr., MD DATE: 03/13/25848 PATIENT: MICHAEL CASE MR#: [id number] : 1955 SEX: M AGE: 70 LOCATION: [facility] ORDER 41 STATUS: ADM IN REPORT#: [id number] SERVICE 40 REASON: hx of COPD, assess for infiltrates, hx of prostate cancer w/ mets ORDERING PHYSICIAN: CARLOS OVALLE MD PROCEDURE: CXR1VW - CHEST 1VW EXAM: CR Chest, 1 view CLINICAL HISTORY: History of COPD. Assess for infiltrates. History of prostate cancer with metastasis. COMPARISON: None provided. FINDINGS: The right-sided Mediport catheter tip overlies the distal SVC. The lungs show no infiltrates or other acute findings. No pleural effusion or pneumothorax. The cardiomediastinal silhouette is within normal limits. No acute osseous abnormality. Mildly elevated right hemidiaphragm. IMPRESSION: No acute cardiopulmonary process is evident. /[place] DICTATED BY: RANDA RIVERA Jr., MD DATE: 03/13/252211 ELECTRONICALLY SIGNED BY: RANDA RIVERA Jr., MD DATE: 03/13/252211 Assessment/Plan: ASSESSMENT: Intractable cancer associated pain, POA History of metastatic prostate cancer with metastasis to bone and suspected bilateral adrenal glands, POA Moderate protein calorie malnutrition, POA History of oral thrush, POA Anemia, POA History of COPD, POA Hypokalemia, POA Hypothyroidism, POA History of BPH, POA PLAN ADMISSION DATE : DISCHARGE DATE : 03/15/2025 DISPOSITION : Home CONDITION : Stable Production Control Specialist(s) : Oncology consult FOLLOW UP APPOINTMENTS : Follow up with PCP, Oncology consult on Monday PROCEDURES : None IMAGING (s) : None MICROBIOLOGY : None ACTIVITY : ab linda HOME MEDICATIONS : Continued except nystatin NEW MEDICATIONS : Gabapentin 300 mg p.o. t.i.d for 14 days., fluconazole 100 mg p.o. daily for 14 days TEACHING : The patient was instructed to present to the nearest Emergency Department or call 911 should their symptoms return or worsen. Discharge Instructions: Follow up with PCP within 2, 3days Follow up with , oncology on Monday Take fluconazole 100mg PO daily for 14 days Take Gabapentin as prescribed Continue home pain medications Monitor CBC, LFT trends, please coordinate with your PCP on this Monitor for symptoms like Shortness of breath, severe chest pain, fever, chills, worsening oral thrush and seek immediate medical attention in such scenario Home Medications: Active Scripts Fluconazole (Fluconazole) 100 Mg Tablet, 1 TAB PO DAILY for 14 Days, #14 TAB 0 Refills Prov:MART HALLMAN MD 03/15/25 Gabapentin (Neurontin) 300 Mg Capsule, 1 CAP PO TID for 14 Days, #42 CAP 0 Refills Prov:MART HALLMAN MD 03/15/25 Reported Medications Fluticasone Propion/Salmeterol ([place] 250-50 Inhub) 250 Mcg-50 Mcg/Dose Blst.w.dev, 1 EACH IH DAILY 03/13/25 Morphine Sulfate (Morphine Sulfate ER) 30 Mg Cap.er.pel, 1 CAP PO [id number] PRN for pain for 30 Days, #60 CAP 0 Refills 03/13/25 Tamsulosin HCl (Flomax) 0.4 Mg Cap.er.24h, 0.4 MG PO DAILY, CAPSULE. 03/13/25 Levothyroxine Sodium (Levothyroxine Sodium) 112 Mcg Tablet, 112 MCG PO AM, TAB 03/13/25 Sertraline HCl (Sertraline HCl) 100 Mg Tablet, 100 MG PO DAILY, TAB 03/13/25 Discontinued Reported Medications Nystatin (Nystatin) 100,000 Unit/Ml Oral.susp, [id number] UNIT PO AD, ML 03/13/25 Time spent arranging discharge: 31-60 minutes ATTESTATION BY PHYSICIAN I have seen and examined the patient. I reviewed the documentation, medical decision making, and treatment plan as noted by the resident physician above. I agree with the findings and plan of care. ALONZO FARRIS MD, PRIYANKA MD Mar 15, 2025 15:49
--- NOTE | 2025-03-15 16:36 | NUR ---
PATIENT DISCHARGED. IV REMOVED INTACT. ALL BELONGINGS GATHERED AND TAKEN BY PATIENT. EDUCATED PATIENT ON MEDICATIONS SENT TO [facility] AND UPDATED ON FOLLOW UP APPOINTMENTS. PATIENT VERBALIZED UNDERSTANDING. ALL QUESTIONS AND CONCERNS ANSWERED. PATIENT TAKEN DOWN VIA WHEELCHAIR ALERT AND ORIENTED WITH GIRLFRIEND.
== END 2025-03-15 16:38 | disposition home or self-care (01) | DRG 948 ==
LOC: EDH 06:29 → EDHIP 13:36 → 3CH 18:00
PROVIDERS: ADMIT Internal Medicine; ATTEND Internal Medicine
DX: G89.3 Neoplasm related pain (acute) (chronic) (principal); E44.0 Moderate protein-calorie malnutrition; C79.51 Secondary malignant neoplasm of bone; E87.6 Hypokalemia; N40.0 Benign prostatic hyperplasia without lower urinary tract symptoms; D64.9 Anemia, unspecified; E03.9 Hypothyroidism, unspecified; C61 Malignant neoplasm of prostate; Z96.653 Presence of artificial knee joint, bilateral; J44.89 Other specified chronic obstructive pulmonary disease; Z79.899 Other long term (current) drug therapy; Z87.891 Personal history of nicotine dependence; Z68.23 Body mass index [BMI] 23.0-23.9, adult
CPT/HCPCS: 36415; 71045; 74176; 80048; 80053; 80076; 81001; 83735; 84484; 85025; 85027; 85610; 85730; 93005; 96374; 96375; 99285; G0378; J1100; J1171; J1650; J1885; J2270; J2405; J3411